=== PATIENT | male | born 1985 | race Caucasian/White ===

== ENCOUNTER 2017-09-30 08:52 | Emergency (ER) | payer OTHER ==
[~2017-09-30] VITALS: Ht 188 cm; Wt 105.0 kg
[~2017-09-30 08:52] MED LIST: AUGM875T PO; CARB100S PO
[2017-09-30 08:56] VITALS: BP 161/94; PULSE 71; RESP 16; TEMP 98.4; O2SAT 99
[2017-09-30] MEDS ORDERED: TEGR100T PO (09:05)
--- NOTE | 2017-09-30 10:37 | PD ---
HPI Chief Complaint: Bite or Sting Time Seen by Provider: 09:29 Travel History International Travel<30 days: No Contact w/Intl Traveler<30days: No Traveled to known affect area: No History of Present Illness HPI The patient is 32 years old. Last night he was handling a aggressive raccoon and was bit in the right ring finger in the region of the distal pad. The injury occurred about 12 hours prior to ER arrival. The patient has the raccoon captivity. 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 He reports having received the rabies vaccine. He has no fever. He immediately irrigated the wound and dressed it with gauze bandage. Last tetanus is less than 2 years old. [facility] Past Medical History Anxiety: Yes Seizures: Yes Past Surgical History Appendectomy: Yes Ear Surgery: Yes (eardrum repair) Social History Alcohol Use: Yes Tobacco Use: No Substance Use: No Allergies-Medications (Allergen,Severity, Reaction): Coded Allergies: levofloxacin (Unverified Allergy, Severe, HIVES, 09/30/17) Reported Meds & Prescriptions Reported Meds & Active Scripts Active Reported Tegretol-Xr 12 HR (Carbamazepine) Unknown Strength Tab Unknown Dose PO Q12HR Review of Systems Except as stated in HPI: all other systems reviewed are Neg General / Constitutional: No: Fever, Chills Eyes: No: Diploplia HENT: No: Headaches Physical Exam Narrative GENERAL: 32-year-old male well-nourished well-developed no acute distress Vital Signs Date Time Temp Pulse Resp B/P (MAP) Pulse Ox O2 Delivery O2 Flow Rate FiO2 09/30/17 08:56 98.4 71 16 161/94 (116) 99 SKIN: Warm and dry. HEAD: Atraumatic. Normocephalic. EYES: Pupils equal and round. No scleral icterus. No injection or drainage. ENT: No nasal bleeding or discharge. Mucous membranes pink and moist. NECK: Trachea midline. No JVD. CARDIOVASCULAR: Regular rate and rhythm. RESPIRATORY: No accessory muscle use. Clear to auscultation. Breath sounds equal bilaterally. GASTROINTESTINAL: Abdomen soft, non-tender, nondistended. Hepatic and splenic margins not palpable. MUSCULOSKELETAL: There is a laceration involving the distal pad of the right ring finger. It is approximately 2 cm long just medial to the medial nail margin. There is no bleeding. There is no adjacent erythema or tenderness out of proportion to exam. Range of motion of the finger is normal. NEUROLOGICAL: Awake and alert. No obvious cranial nerve deficits. Motor grossly within normal limits. Five out of 5 muscle strength in the arms and legs. Normal speech. PSYCHIATRIC: Appropriate mood and affect; insight and judgment normal. Data Data Last Documented VS Vital Signs Date Time Temp Pulse Resp B/P (MAP) Pulse Ox O2 Delivery O2 Flow Rate FiO2 09/30/17 08:56 98.4 71 16 161/94 (116) 99 Orders Orders Amoxicil-Clavulanate (Augmentin) (09/30/17 10:45) Rabies Vaccine Human Cell Inj (Imovax In (09/30/17 11:00) Rabies Immune Globulin Inj (Hyperrab S/D (09/30/17 11:00) MDM Medical Decision Making Medical Screen Exam Complete: Yes Emergency Medical Condition: Yes Medical Record Reviewed: Yes Differential Diagnosis Laceration, cellulitis, rabies exposure Narrative Course There is a laceration of the right index finger distal pad which is more than 12 hours old and was caused by a raccoon bite. This is by definition high risk and closure with sutures is contraindicated. This was discussed with on-call hand surgery Dr. Johnson. Infectious disease was also consulted, Dr. Carvalho, and recommendations were made for rabies immunoglobulin as well as a vaccine booster. The patient was somewhat concerned about using the booster as he had a titer drawn a year ago which was normal however recommendations are for once annual booster doses. Additionally Augmentin will be prescribed. The first doses given here. Follow-up with the health department advised and the patient verbalized understanding. Patient also is well acquainted with the personnel there. The wound was scrubbed with an iodine surgical brush. Diagnosis Primary Impression: Laceration of finger of right hand Qualified Codes: S61.214A - Laceration without foreign body of right ring finger without damage to nail, initial encounter Additional Impression: Raccoon bite Qualified Codes: W55.51XA - Bitten by raccoon, initial encounter Referrals: [facility] Dept. 2 days Med/Other Pt SpecificInfo: Prescription(s) given Scripts Amoxicillin-Clavulanate (Augmentin) 875-125 Mg Tab 1 TAB PO BID for Infection for 7 Days, #14 TAB 0 Refills Prov: Ben Aguilar MD 09/30/17 Disposition: 01 DISCHARGE HOME Condition: Stable Ben Aguilar MD Sep 30, 2017 10:37
[2017-09-30] MEDS ORDERED: AMOXICILLIN/CLAVULANATE K 875 MG TAB PO ONE (10:45)
[2017-09-30] MEDS ORDERED: RABIES IMMUNE GLOBULIN INJ 300 UNITS/2 ML VIAL IM ONE (10:45)
[2017-09-30 11:00] VITALS: BP 158/86; PULSE 68; RESP 16; O2SAT 97
[2017-09-30] MEDS ORDERED: RABIES IMMUNE GLOBULIN INJ 1,500 UNITS/10 ML VIAL IM ONE (11:00)
[2017-09-30] MEDS ORDERED: RABIES VACCINE HUMAN DIPL CELL 2.5 UNITS/ML SYRINGE IM ONE (11:00)
[2017-09-30] MEDS ORDERED: AUGM875T3 PO (11:15)
== END 2017-09-30 12:48 | disposition home or self-care (01) ==
LOC: NEPD 08:52
DX: S61.254A Open bite of right ring finger without damage to nail, initial encounter (principal); G40.909 Epilepsy, unspecified, not intractable, without status epilepticus; W55.51XA Bitten by raccoon, initial encounter; Y99.0 Civilian activity done for income or pay; Z23 Encounter for immunization
CPT/HCPCS: 90375; 90471; 90675; 96372